=== PATIENT | female | born 1960 | race Hispanic/Latino ===

== ENCOUNTER 2017-12-31 14:13 | Emergency (ER) | payer OTHER | END 2017-12-31 15:35 | disposition home or self-care (01) | LOC: EDH 14:13 | DX: J09.X2 Influenza due to identified novel influenza A virus with other respiratory manifestations (principal); Z72.0 Tobacco use | CPT/HCPCS: 87804 ==

== ENCOUNTER 2019-01-10 13:02 | Emergency (ER) | payer SELFPAY | END 2019-01-10 14:14 | disposition home or self-care (01) | LOC: EDH 13:02 | DX: G44.209 Tension-type headache, unspecified, not intractable (principal); F41.9 Anxiety disorder, unspecified | CPT/HCPCS: 99281 ==